=== PATIENT | female | born 1980 | race Caucasian/White ===

== ENCOUNTER 2017-07-14 01:46 | Inpatient (IN) | payer OTHER ==
[~2017-07-14] VITALS: Ht 160 cm; Wt 64.4 kg
[2017-07-14] MEDS ORDERED: Lactated Ringer's 1,000 ML IV PRN (02:14)
[2017-07-14] MEDS ORDERED: Sodium Chloride LOK Flush 10 mL Syringe IVFLUSH PRN (02:15)
[2017-07-14] MEDS ORDERED: Oxytocin 10 Unit/mL Inj IM PRN ×2 (02:15→03:25)
[2017-07-14] MEDS ORDERED: Methylergonovine 0.2 mg/mL Inj IM PRN ×2 (02:15→03:25)
[2017-07-14] MEDS ORDERED: Carboprost 250 mCg/mL Inj IM PRN ×2 (02:15→03:25)
[2017-07-14] MEDS ORDERED: Oxytocin 30 Units/500 mL LR 30 UNITS in IV Premix 1 EACH IV PRN ×2 (02:15→03:25)
[2017-07-14] MEDS ORDERED: fentaNYL-PF 50 mCg/mL 2 mL Inj IVPUSH PRN (02:15)
[2017-07-14] MEDS ORDERED: Hemorrhage Kit, Post Partum XX ONE ×2 (02:15→03:25)
[2017-07-14] MEDS ORDERED: Ondansetron 2 mg/mL 2 mL Inj IVPUSH PRN (02:15)
[2017-07-14] MEDS ORDERED: PREN1TAB87 PO (02:19)
[2017-07-14 02:31] LABS: Mean Corpuscular Hemoglobin 30.7 pg (27.0-35.0); Mean Corpuscular Volume 89.9 fL (81-100)
[2017-07-14] MEDS ORDERED: Lactated Ringer's 1,000 ML IV SCH (03:21)
[2017-07-14] MEDS ORDERED: HYDROcodone-APAP 5-325 mg Tablet PO PRN (03:25)
[2017-07-14] MEDS ORDERED: Benzocaine (Dermoplast) 20% 60 Gm Spray TOPICAL PRN (03:25)
[2017-07-14] MEDS ORDERED: LANOlin HPA 7 Gm Ointment TOPICAL PRN (03:25)
--- NOTE | 2017-07-14 03:31 | PCM.HPOB ---
Subjective Date of Service: Jul 14, 2017 Referring Provider: Admitting Physician: Mariel Bah MD Primary Care Physician: Wandy Angela MD Attending Physician: Mariel Bah MD Chief Complaint Active labor at 38 weeks +5 days History of Present History of Present Illness Patient is a very pleasant 37-year-old who has had regular care and has an EDC of 07/24/2017. She had been into the center in the last 24 hours with nausea and vomiting, and mild infrequent contractions and was given oral Zofran and monitored. Her contractions spaced out and she felt better and was sent home. She has been resting over the course of the day and started with contractions at around 10 PM on 07/13/2017. She came to the center around 2 AM and was 8 cm on arrival with intact membranes. heart rate was reactive with baseline in the 130s and good [id number] variability. Her vital signs were stable. GBS was negative. was otherwise healthy and uncomplicated. She does have history of depression and had started some counseling in the and recently had started on sertraline 12.5 mg daily. OB History: (3), Para (2), Term (2), Pre-term (0), ( 0), Living (2) Obstetrical Complications: None Past Medical History Obstetrical History: 1. Her first baby was born in January 2012 at 40 weeks gestational age following 8 hours of labor. She went onto spontaneous vaginal delivery of a liveborn male weighing 7 lbs. 11 oz. His name is Telly and he is healthy. 2. Her second baby was born in March 2014 at 40 weeks gestational age following 7 hours of labor. She went onto spontaneous vaginal delivery of a liveborn female weighing 7 lbs. 2 oz. Her name is Tana. She developed some anxiety with PTSD and depression and had good response to sertraline 12.5 mg daily. She took this for several months and stopped. 3. This is her third and current . Gynecologic History: She has had history of abnormal Pap smear, with positive HPV and colposcopy and biopsy with follow-up Paps being benign. Medical History: She has had history of anxiety with PTSD . She has classic migraines with aura. She had previous concussion with transient vision loss some years ago and was out of sports for 2 weeks. She had history of rib fracture with splenic laceration and was hospitalized for a week but settled with conservative care. Surgical History: Only previous surgical procedure was colonoscopy with biopsy. Social History: Patient is , and is an RN. She lives with her and their 2 children. She is a nonsmoker. Hx Tobacco Use: No Hx Alcohol Use: No Hx Substance Use: No Past Family History Living Arrangement: with Family Genetic Screening/Counseling Baby father-had child w defect: No Review of Systems Constitutional: Y: Chills, Fever Eyes: Denies: Blurred Vision, Double Vision, Vision Changes ENT: Denies: Dental Problems, Nasal Congestion, Ulcers/Sores in Mouth Cardiovascular: Denies: Chest Pain Respiratory: Denies: Cough Gastrointestinal: Reports: Nausea, Denies: Constipation, Diarrhea Genitourinary: Denies: Dysuria Musculoskeletal: Denies: Redness, Swelling Skin/Breasts: Denies: Bruising, Discharge Skin: Denies: Jaundice Neurological: Denies: Change in Speech Psychologic: Denies: Agitation, Anxious, Apprehensive, Depression Hematologic: Denies: Adenopathy Medications Home medications vitamins 1 tab by mouth daily Sertraline 12.5 mg daily started recently Allergy Coded Allergies: metronidazole (Verified Allergy, Intermediate, 07/14/17) Exam Constitutional: Well-developed, Well-nourished HEENT: Mucous Membr Moist/[place] Lungs: Clear to Auscultation, Normal Air Movement Heart: Regular Rate/Rhythm, Normal S1, Normal S2, No Murmurs/Rubs/Gallops Abdomen: Gravid, Soft, No tenderness Lymphatic: Normal: Neck Palpation of Nodes Extremities: Pulses Palpable x4, Warm, No Edema Neurological/Psychiatric: Alert, Oriented X3, Moderate Distress Neuro: Grossly Neurologically Intact Labs/Diagnostics Labs Her blood type is O+ with no abnormal antibodies. Pap smear was done just prior to and was negative. She is immune to rubella and varicella. RPR was nonreactive. Urine culture was negative. Hep B surface antigen was negative. HIV was negative. Hepatitis C was less than 0.1. HSV type I is positive but type II was negative. TSH was normal at 1.3. GTT was normal at 118 GBS was negative. Maternal Blood Type: O Hx Rho(D) Immune Globulin: No Antibody Screen: negative Group B Strep Results: Negative Previous Infant with GBS: No Rubella: Immune Lab History: Positive for: Hx Chicken Pox, Hx Herpes, Negative for: Hx Gonorrhea, Hx HIV, Hx Syphilis OB Intrapartum Assessment/Plan Assessment Patient is a 37-year-old in active labor who presented to the center at 8 cm and was 9 cm on her my arrival. heart rate was reactive and she is GBS negative. Vaginal delivery is anticipated, and estimated weight around 7 pound range. Mother is otherwise healthy with an uncomplicated . Problems: (1) with 38 completed weeks gestation Status: Acute ICD Code: Z3A.38 Mariel Bah MD Jul 14, 2017 03:31
[2017-07-14] MEDS: Witch Hazel-Glycerin Pads TOPICAL PRN (03:42)
--- NOTE | 2017-07-14 03:43 | PCM.OBVAG ---
Vaginal Delivery Date of Service Jul 14, 2017 Pre Operative Diagnosis Pre Operative Diagnosis 1. at 38 weeks +5 days with spontaneous labor 2. Spontaneous vaginal delivery of a liveborn female Post Operative Diagnosis Post Operative Diagnosis 1. at 38 weeks +5 days with spontaneous labor 2. Spontaneous vaginal delivery of a liveborn female infant Procedure Obstetical Procedure: Normal Spontaneous Vaginal Delivery Movie Editor/Tree And Shrub Technician Provider and Tree And Shrub Technician: Dr. Mariel Bah Indication for Procedure Induction: Active labor, AROM, Progressed normally through labor Findings Obstetrical Findings: (Female), Cord (3 Vessel), Presentation (ZAID), 1 minute (7), 5 minutes (9), Placenta (Intact/Normal), Perineal Laceration (1st degree) Analgesia/Medications Obstetrical Anesthesia: Local Procedure Details Procedure Details Patient is a very pleasant 37-year-old with EDC of 07/24/2017. She presented to the center this morning in active labor and was 8 cm on arrival with intact membranes. heart rate was reactive with baseline in the 130s to 140s. She progressed quickly to complete and artificial rupture of membranes was done for small amount of clear amniotic fluid. She went onto spontaneous vaginal delivery of a live born female in the ZAID position. Baby was handed to the maternal abdomen and cried right away. weight is pending at time of this dictation but Apgars were 7 at 1 minute and 9 at 5 minutes. Delayed cord clamping was done. Placenta delivered intact with a three-vessel cord and estimated blood loss at time of delivery was less than 250 mils. Mother sustained a small first-degree upper right labial tear that was repaired with 4-0 Vicryl to achieve good cosmesis and hemostasis. She intends to breast-feed and baby care is to pediatrics. Mom has history of depression and anxiety with PTSD and has started counseling in the and also recently was started on sertraline 12.5 mg daily. She has good family supports. Routine care is anticipated for both mom and baby. Specimen Placenta was for routine disposal. Blood Loss & Administration Estimated Blood Loss: 250 Post Procedure Plan Post delivery Condition: Mom елена Mariel Bah MD Jul 14, 2017 03:43
[2017-07-15 06:54] LABS: Mean Corpuscular Hemoglobin 30.7 pg (27.0-35.0); Mean Corpuscular Volume 94.3 fL (81-100)
--- NOTE | 2017-07-15 08:08 | PCM.DC.OB ---
Obstetrical Discharge Summary Date of Service Jul 15, 2017 Date of hospital admission Jul 14, 2017 at 02:00 Date of Discharge: Jul 15, 2017 Providers Admitting Physician: Mariel Bah MD Primary Care Physician: Wandy Angela MD Attending Physician: Mariel Bah MD Diagnosis at Time of Discharge 1. at 38 weeks +5 days with spontaneous labor 2. Spontaneous vaginal delivery of a liveborn female infant Problems: (1) with 38 completed weeks gestation Status: Acute ICD Code: Z3A.38 (2) (normal spontaneous vaginal delivery) Status: Acute ICD Code: O80 Brief History and Physical: Patient is a very pleasant 37-year-old who has had regular care and has an EDC of 07/24/2017. She had been into the center in the last 24 hours with nausea and vomiting, and mild infrequent contractions and was given oral Zofran and monitored. Her contractions spaced out and she felt better and was sent home. She has been resting over the course of the day and started with contractions at around 10 PM on 07/13/2017. She came to the center around 2 AM and was 8 cm on arrival with intact membranes. heart rate was reactive with baseline in the 130s and good [id number] variability. Her vital signs were stable. GBS was negative. was otherwise healthy and uncomplicated. She does have history of depression and had started some counseling in the and recently had started on sertraline 12.5 mg daily. Hospital Course: Patient is a very pleasant 37-year-old who has had regular care and had EDC of 07/24/2017. She came into the center in active labor and was 8 cm on arrival. She progressed quickly to complete. heart rate was reactive with baseline in the 130 640s with good [id number]-khmy variability. Artificial rupture of membranes was done at complete for a small amount of clear fluid. GBS was negative. Her first stage of labor was 4 hours and 42 minutes, second stage was 13 minutes, third stage was 5 minutes. She went on to spontaneous vaginal delivery of a liveborn female infant weighing 7 pounds and 7 ounces with Apgars of 7 at 1 minute and 8 at 5 minutes. Placenta delivered intact with a three-vessel cord estimated blood loss at time of delivery was 250 mils. Mother sustained a small first-degree tear to the right upper labia that was sutured with 4-0 Vicryl to achieve good cosmesis and hemostasis. Routine care was commenced. Over the last day, mom has been doing well and has been up and voiding and she has passed her bowels. Vital signs have been stable. She is bonding well with her baby and feels ready for discharge today. She has had moderate rubra lochia. She is currently taking sertraline and is tolerating this well. Usual care and advice was provided. She feels ready to go home today. On examination she is a pleasant female in no acute distress blood pressure has been 89/54-114/74. Heart rate 44-55 and temp is 36.8. Chest is clear throughout with normal respiratory effort heart sounds normal sinus rhythm no murmurs breasts are soft, nipples everted, baby latches well. Fundus is firm at the umbilicus. Her perineum is not swollen and stitches are clean and intact. She has no distal edema. Admitting hemoglobin was 13.1 with hematocrit of 38.4. Discharge hemoglobin is 11.8 with hematocrit of 36.2 platelet count 158. Vit W-Ca,Fe,FA(<1 mg) ( Vitamins) 1 Each Tablet 1 EACH PO DAILY (Reported) Discharge Medications: #1 vitamins 1 tablet by mouth daily while breast-feeding #2 sertraline 12.5 mg by mouth daily #3 ibuprofen 800 mg by mouth 3 times a day when necessary for pain #4 Vicodin 5/325 one tab by mouth every 6 hours when necessary for pain Disposition Patient will be discharged home today and baby care is to pediatrics. Discharge Diet: No restrictions Discharge Activity-General: Pelvic Rest for 6 weeks, Pelvic Rest, Try not to overdue, Be up and about, Balance rest and activity, Activity as pain allows, Activity as energy allows Patient instructions Patient will breast-feed on demand or at least every 2-3 hours until milk supply is in and baby is consistently feeding well. Mother to call the office with any questions or concerns and will be seen at 6 weeks . Mariel Bah MD Jul 15, 2017 08:08
--- NOTE | 2017-07-15 08:12 | PCM.DIOB ---
Obstetrical Disch Instruction Date of Service: Jul 15, 2017 Dates of Hospitalization Date of Hospital Admission 07/14/2017 Providers Admitting Physician: Mariel Bah MD Primary Care Physician: Wandy Angela MD Attending Physician: Mariel Bah MD Discharge Diagnosis Discharge Diagnosis 1. at 38 weeks +5 days with spontaneous labor 2. Spontaneous vaginal delivery of a liveborn female infant Post Operative diagnosis 1. at 38 weeks +5 days with spontaneous labor 2. Spontaneous vaginal delivery of a liveborn female infant. Problems: (1) with 38 completed weeks gestation Status: Acute ICD Code: Z3A.38 (2) (normal spontaneous vaginal delivery) Status: Acute ICD Code: O80 Diet Discharge Diet: No restrictions Activity Discharge Activity-General: Pelvic Rest for 6 weeks, Be up and about, Balance rest and activity, Activity as pain allows, Activity as energy allows Dressing and Incisional Care Hygiene: May shower, Perineal care, Sitz bath, Dermoplast spray, Witch Letha pads, Ice Additional Instructions Discharge Instructions Patient will breast-feed on demand or at least every 2-3 hours until milk supply is in and baby is consistently feeding well. Mother to call the office with any questions or concerns and will be seen at 6 weeks . Follow Up Plan Follow-up Provider (F9): Mariel Bah MD Follow-up appointment: Weeks (6) Call your provider for: Fever or Chills, Shortness of breath, Heavy vaginal bleeding, Epigastric pain, Excessive constipation, Vaginal discomfort, Red painful breasts Mariel Bah MD Jul 15, 2017 08:12
[2017-07-15] MEDS ORDERED: IBUP800T28 PO (08:13)
[2017-07-15] MEDS ORDERED: HYDR-4003 PO (08:13)
[2017-07-15 11:27] VITALS: BP 100/56; PULSE 58; RESP 18
[2017-07-15] MEDS: Witch Hazel-Glycerin Pads TOPICAL PRN (15:27)
== END 2017-07-15 15:42 | disposition home or self-care (01) | DRG 775 ==
LOC: FBCO 01:46 → FBC 02:00
PROVIDERS: ADMIT Family Medicine; ATTEND Family Medicine
PROC: 10E0XZZ Delivery of Products of Conception, External Approach (ICD-10-PCS; principal; 2017-07-14)
PROC: 10907ZC Drainage of Amniotic Fluid, Therapeutic from Products of Conception, Via Natural or Artificial Opening (ICD-10-PCS; 2017-07-14)
PROC: 0HQ9XZZ Repair Perineum Skin, External Approach (ICD-10-PCS; 2017-07-14)
DX: O70.0 First degree perineal laceration during delivery (principal); Z3A.38 38 weeks gestation of pregnancy; Z37.0 Single live birth